=== PATIENT | female | born 1990 | race Caucasian/White ===

== ENCOUNTER 2016-05-19 17:53 | Emergency (ER) | payer BC ==
[~2016-05-19] VITALS: Ht 162.6 cm; Wt 82.0 kg
[~2016-05-19 17:53] MED LIST: MEDDOSEPAK PO
[2016-05-19] MEDS ORDERED: KEFLEX500 MG PO (18:59)
[2016-05-19] MEDS ORDERED: PERCOCET 5/325M1 TAB PO (18:59)
[2016-05-19 19:11] VITALS: BP 129/79
== END 2016-05-19 19:11 | disposition home or self-care (01) | DRG 603 ==
LOC: ED 17:53
PROC: 0H98XZZ Drainage of Buttock Skin, External Approach (ICD-10-PCS; principal; 2016-05-19)
DX: L05.01 Pilonidal cyst with abscess (principal)

== ENCOUNTER 2016-05-21 16:24 | Emergency (ER) | payer BC ==
[~2016-05-21] VITALS: Ht 162.6 cm; Wt 75.0 kg
[~2016-05-21 16:24] MED LIST changes: +KEFLEX500 MG PO; +PERCOCET 5/325M1 TAB PO
[2016-05-21 17:22] VITALS: BP 123/70
== END 2016-05-21 17:25 | disposition home or self-care (01) | DRG 951 ==
LOC: ED 16:24
DX: Z48.01 Encounter for change or removal of surgical wound dressing (principal)

== ENCOUNTER 2016-06-27 09:02 | Day surgery (SDC) | payer BC ==
[~2016-06-27] VITALS: Ht 162.6 cm; Wt 68.0 kg
[~2016-06-27 09:02] MED LIST changes: +XANAX0.5 MG PO; +ZOLOFT
[2016-06-27] MEDS ORDERED: PERCOCET 5/325M1 TAB PO (10:56)
[2016-06-27 13:11] VITALS: BP 104/64
== END 2016-06-27 12:30 | disposition home or self-care (01) | DRG 572 ==
LOC: ORM 09:02
PROVIDERS: ATTEND Surgery
PROC: 0HB8XZZ Excision of Buttock Skin, External Approach (ICD-10-PCS; principal; 2016-06-27)
DX: L05.91 Pilonidal cyst without abscess (principal); F17.210 Nicotine dependence, cigarettes, uncomplicated
CPT/HCPCS: J2710

== ENCOUNTER 2016-07-04 17:09 | Emergency (ER) | payer BC ==
[~2016-07-04] VITALS: Ht 162.6 cm; Wt 70.0 kg
[2016-07-04 18:00] VITALS: BP 116/78
== END 2016-07-04 18:00 | disposition home or self-care (01) | DRG 951 ==
LOC: ED 17:09
DX: Z09 Encounter for follow-up examination after completed treatment for conditions other than malignant neoplasm (principal); Z98.890 Other specified postprocedural states

== ENCOUNTER 2016-09-06 18:00 | Emergency (ER) | payer BC ==
[~2016-09-06] VITALS: Ht 162.6 cm; Wt 60.0 kg
[2016-09-06 18:59] LABS: HEMATOCRIT 41.5 % (37.0-47.0); IMMATURE GRANULOCYTES 0.3 % (0.0-1.0); MEAN CELL VOLUME 89.2 fL CALC (80.0-100.0); MEAN CORPUSCULAR HGB 30.1 pG CALC (26.0-32.0); MEAN CORPUSCULAR HGB CONC 33.7 g/L CALC (32.0-36.0); NEUT# 6.2 thou/uL (2.00-7.15); RED BLOOD COUNT 4.65 mill/uL (4.20-5.60); RED CELL DISTRI WIDTH 13.6 % (11.5-15.5)
[2016-09-06 19:19] LABS: URINE BILIRUBIN - DIPSTICK NEGATIVE (NEGATIVE); URINE BLOOD DIPSTICK NEGATIVE (NEGATIVE); URINE CLARITY CLEAR; URINE COLOR YELLOW; URINE GLUCOSE - DIPSTICK NEGATIVE (NEGATIVE); URINE KETONE NEGATIVE (NEGATIVE); URINE LEUK ESTERASE NEGATIVE (NEGATIVE); URINE NITRITE - DIPSTICK NEGATIVE (Negative); URINE PROTEIN - DIPSTICK NEGATIVE (NEG-TRACE); URINE SPECIFIC GRAVITY 1.015; URINE UROBILINOGEN - DIPSTICK 0.2 E.U./dL (0.2)
[2016-09-06 19:19] LABS: ALBUMIN 4.6 g/dL (3.2-5.0); ALKALINE PHOSPHATASE 82 u/l (38-126); ANION GAP 14 (6-22 (CALC)); BILIRUBIN, TOTAL 0.2 mg/dL (0.0-1.4); BUN 8 mg/dL (7-17); BUN/CREATININE RATIO 12 (12-20 (CALC)); CALCIUM 9.2 mg/dL (8.4-10.2); CARBON DIOXIDE 26 mmol/l (22-30); CHLORIDE 104 mmol/l (95-108); CREATININE 0.7 mg/dL (0.5-1.0); GFR > 60 ML/MIN (>=60 (CALC)); GFR FOR AFR.AMER. > 60 ML/MIN (>=60 (CALC)); GLUCOSE 99 mg/dL (65-105); POTASSIUM 3.5 mmol/l (3.5-5.1); SGOT/AST 22 u/l (14-36); SGPT/ALT 30 u/l (9-52); SODIUM 141 mmol/l (137-146); TOTAL PROTEIN 7.6 g/dL (6.3-8.2)
[2016-09-06 19:24] LABS: BARBITURATES NEGATIVE (NEGATIVE); COCAINE NEGATIVE (NEGATIVE); METHADONE NEGATIVE (NEGATIVE); OXCYCODONE NEGATIVE (NEGATIVE); TETRAHYDROCANNABIONOL NEGATIVE (NEGATIVE); TRICYLIC ANTIDEPRESSANTS NEGATIVE (NEGATIVE)
[2016-09-06] MEDS ORDERED: XANAX0.25 MG PO (19:43)
[2016-09-06 20:07] VITALS: BP 101/66
== END 2016-09-06 20:13 | disposition home or self-care (01) | DRG 880 ==
LOC: ED 18:00
PROVIDERS: Emergency Medicine
DX: F41.9 Anxiety disorder, unspecified (principal); Z91.14 Patient's other noncompliance with medication regimen; F31.9 Bipolar disorder, unspecified; F17.210 Nicotine dependence, cigarettes, uncomplicated